=== PATIENT | female | born 1990 | race Caucasian/White ===

== ENCOUNTER 2017-05-14 19:29 | Emergency (ER) | payer SELFPAY ==
[2017-05-14 19:35] VITALS: BP 108/61; BMI 23.0
--- NOTE | 2017-05-14 20:25 | DR.GENAD ---
HPI - PCP Primary Care Physician: TEDDY - HPI Comment HPI Comment: HAPPEN 3 DAYS AGO. WORSE TODAY. - Complaint/Symptoms Chief Complaint Doctors Comments: FELL OFF RHE HORSE AND INJURED LEFT SHOULDER AND NECK. INCREASING PAIN SINCE. Chief Complaint:: "Monday I fell off of a horse and landed on my shoulder. It has been hurting since. I have trouble doing day to day things now." - Nurses notes reviewed Nurses Notes Review: Yes - Source History Provided: Patient - Mode of Arrival Mode of Arrival: Ambulatory - Timing Onset of Chief Complaint: 05/12/17 Came on: Suddenly - Duration Duration: Constant Duration: Days - Severity Severity: Moderate PMH - PMH Past Medical History: No Past Surgical History: No - Family History History of Family Medical Conditions: No - Social History Does patient currently use any type of tobacco product: Yes Have you used tobacco products in the last 12 months: Yes Type of Tobacco Use: Cigarettes Does any household member use tobacco: No Alcohol Use: Occasionally Do you use any recreational Drugs:: No Lives With: Spouse Lives Where: Home - infectious screening In the last 2 months have you had wt loss of >10#?: YES Have you had fever, night sweats or hemotysis?: No Have you traveled outside the country in the last 6 months?: No Isolation: Standard ROS - Review of Systems Constitutional: No Symptoms Reported Eyes: No Symptoms Reported ENTM: No Symptoms Reported Respiratoy: No Symptoms Reported Cardiovascular: No Symptoms Reported Gastrointestinal/Abdominal: No Symptoms Reported Genitourinary: No Symptoms Reported Neurological: No Symptoms Reported Musculoskeletal: Left, Shoulder Integumentary: Bruises (OVER LEFT SHOULDER.) Hematologic/Lymphatic: No Symptoms Reported Endocrine: No Symptoms Reported All Other Systems: Reviewed and Negative PE - Vital Signs Vitals: Temperature 98.4 F Pulse Rate 88 Respiratory Rate 18 Blood Pressure 108/61 O2 Sat by Pulse Oximetry 98 - General Limitations: No Limitations General Appearance: Alert - Head Head Exam: Normal Inspection - Eyes Eye exam: Normal Appearance - ENT ENT Exam: Normal External Ear Exam External Ear Exam: Normal External Inspection TM/Canal Exam: Bilateral Normal Nose Exam: Normal Nose Exam Mouth Exam: Normal Inspection Throat Exam: Normal Inspection - Neck Neck Exam: Trachea Midline - Chest Chest Inspection: Symmetric Chest Wall Rise - Respiratory Respiratory Exam: Normal Lung Sounds Bilat Respiratory Exam: Bilateral Clear to Auscultation - Cardiovascular Cardiovascular Exam: Regular Rate, Normal Rhythm, Normal Heart Sounds - Abdominal Exam Abdominal Exam: Normal Bowel Sounds, Soft. negative: Tenderness - Extremities Extremities Exam: Tenderness (BRUISING, SWELLING AND TENDERNESS LEFT SHOULDER. DECREASE ROM.) - Back Back Exam: Normal Inspection - Neurologic Neurological Exam: Alert, Oriented X3 - Psychiatric Psychiatric Exam: Normal Affect, Normal Mood - Skin Skin Exam: Normal Color MDM - Additional Information Additional Information Obtained From: Family - Differential Diagnosis Differential Diagnosis: CONTUSION, SPRAIN, FRACTURE LEFT SHOULDER. Course - Treatment Treatment: IM MED FOR PAIN, IN ED. PAIN DECREASING. SEE ORDERS. PATIENT LEFT BEFORE EVALUATION WAS COMPLETED. SHE SIGN OUT AMA. - Reevaluation 1st: Improved - Education/Counseling Education/Counseling: Patient ROR - XRAY XRAY Interpreted by: Radiologist XRAY Findings: REPORT DISCUSS WITH PATIENT. - Diagnosis Discharge Problem: Separation of left acromioclavicular joint Qualifiers: Encounter type: initial encounter Qualified Code(s): S43.102A - Unspecified dislocation of left acromioclavicular joint, initial encounter Sprain of left shoulder Qualifiers: Encounter type: initial encounter Shoulder sprain type: other part of shoulder region Qualified Code(s): S43.492A - Other sprain of left shoulder joint, initial encounter Cervical sprain Qualifiers: Encounter type: initial encounter Qualified Code(s): S13.9XXA - Sprain of joints and ligaments of unspecified parts of neck, initial encounter - Discharge Plan Disposition: 07 AGAINST MEDICAL ADVICE Condition: Stable - Follow ups/Referrals Follow ups/Referrals: NFD,None [Primary Care Provider] - 3 days - Instructions
--- NOTE | 2017-05-14 21:41 | RAD ---
Cervical spine-This five views, 6 images Indication: Neck pain after fall. Findings: Prevertebral soft tissues are normal. Craniocervical and cervicothoracic junctions appear grossly intact. Vertebral body heights and disc spaces are normal. Oblique view shows no bony neural foramen narrowing. Impression: No acute cervical spine fracture seen. Reported By:
--- NOTE | 2017-05-14 21:42 | RAD ---
The three views of the left shoulder Indication: Left shoulder pain after fall from horse 3 days prior. Findings: There is widening of the AC joint and elevation the distal clavicle with AC joint sprain ( grade 3). No fracture of the distal clavicle or acromion. Glenohumeral joint alignment is maintained without fracture. No displaced left-sided rib fracture. Impression: Left AC joint sprain consistent with a grade 3 AC separation. No acute left shoulder fra cture. Reported By:
== END 2017-05-14 21:30 | disposition left against medical advice (07) ==
LOC: ER 19:29
DX: S43.102A Unspecified dislocation of left acromioclavicular joint, initial encounter (principal); S43.492A Other sprain of left shoulder joint, initial encounter; S13.9XXA Sprain of joints and ligaments of unspecified parts of neck, initial encounter; W19.XXXA Unspecified fall, initial encounter; Y92.9 Unspecified place or not applicable
CPT/HCPCS: 72050; 73030; 99282; 99283